=== PATIENT | female | born 2000 | race Caucasian/White ===

== ENCOUNTER 2021-08-09 07:16 | Emergency (ER) | payer OTHER ==
[2021-08-09 08:03] LABS: BASOPHILS # (AUTO) 0.1 10^3/uL (0.0-0.1); BASOPHILS % (AUTO) 0.6 %; EOSINOPHILS # (AUTO) 0.2 10^3/uL (0.0-0.7); EOSINOPHILS % (AUTO) 2.3 %; HCT - HEMATOCRIT 40.1 % (37.0-47.0); HGB - HEMOGLOBIN 14.1 g/dL (12.0-16.0); LYMPHOCYTES # (AUTO) 2.2 10^3/uL (1.5-3.5); LYMPHOCYTES % (AUTO) 26.5 %; MEAN CORPUSCULAR HEMOGLOBIN 31.4 pg (27.0-31.0); MEAN CORPUSCULAR HGB CONC 35.2 g/dL (32.0-36.0); MEAN CORPUSCULAR VOLUME 89.3 fL (81.0-99.0); MEAN PLATELET VOLUME 12.4 fL (7.9-10.8); MONOCYTES # (AUTO) 0.6 10^3/uL (0.0-1.0); MONOCYTES % (AUTO) 6.8 %; NEUTROPHILS # (AUTO) 5.2 10^3/uL (1.5-6.6); NEUTROPHILS % (AUTO) 63.4 %; PLT - PLATELET COUNT 164 10^3/uL (130-450); RED BLOOD COUNT 4.49 10^6/uL (4.20-5.40); RED CELL DISTRIBUTION WIDTH 11.4 % (12.0-15.0); WHITE BLOOD COUNT 8.3 x10^3/uL (4.8-10.8)
--- NOTE | 2021-08-09 08:06 | ED Physician Documentation ---
PD HPI ABD PAIN - Stated complaint Stated Complaint: STOMACH PX - Chief complaint Chief Complaint: Abd Pain - History obtained from History obtained from: Patient - History of Present Illness Timing - onset: Last night (onset during the night of abd cramping pain and repetitive nausea/vomiting. Only 1 loose stool. Prior to that had been having some epigastric pains with eating for about a week, but no vomiting.) Timing - duration: Hours Timing - details: Abrupt onset, Still present Quality: Cramping, Aching, Pain Location: Epigastric, Periumbilical Radiation: No: Chest, Lower back Improved by: No: Vomiting Worsened by: Eating Associated symptoms: Nausea, Vomiting, Diarrhea (single loose stool), Loss of appetite. No: Fever, Constipation, Dysuria, Dizzy, Near syncope / syncope Recently seen: Not recently seen Review of Systems Constitutional: denies: Fever, Chills Nose: denies: Rhinorrhea / runny nose, Congestion Throat: denies: Sore throat Cardiac: denies: Chest pain / pressure Respiratory: denies: Cough GI: reports: Abdominal Pain (epigastric to mid abdomen), Nausea, Vomiting, Diarrhea. denies: Hematemesis, Bloody / black stool : denies: Dysuria, Frequency Skin: denies: Rash Neurologic: denies: Generalized weakness, Near syncope PD PAST MEDICAL HISTORY - Past Medical History Past Medical History: No - Past Surgical History Past Surgical History: No - Present Medications Home Medications: Ambulatory Orders Medication Instructions Recorded Confirmed Famotidine [Pepcid] 20 mg PO DAILY #20 tablet 08/09/21 HYDROcod/ACETAM 5/325 [[place] 5/325] 1 ea PO Q6H PRN #10 tablet 08/09/21 Ondansetron Odt [Zofran] 4 mg TL Q6H PRN #10 tablet 08/09/21 - Allergies Allergies/Adverse Reactions: Allergies Allergy/AdvReac Type Severity Reaction Status Date / Time No Known Drug Allergies Allergy Verified 08/09/21 07:25 - Social History Does the pt smoke?: No Smoking Status: Never smoker PD ED PE NORMAL - Vitals Vital signs reviewed: Yes - General General: Alert and oriented X 3, Well developed/nourished - HEENT HEENT: PERRL, EOMI (nonicteric), Pharynx benign - Neck Neck: Supple, no meningeal sign, No adenopathy - Cardiac Cardiac: RRR, No murmur - Respiratory Respiratory: Clear bilaterally - Abdomen Abdomen: Soft, Non distended, No organomegaly, Other (tender without guarding nor percussion tender in supraumbilical and epigastric area. Some to RUQ. Not tender in lower abd. No percussion nor rebound tenderness. ). No: Normal bowel sounds (decreased) - Female Female : Deferred - Rectal Rectal: Deferred - Back Back: No CVA TTP - Derm Derm: Normal color, Warm and dry - Neuro Neuro: Alert and oriented X 3, No motor deficit, Normal speech Results - Vitals Vitals: Vital Signs - 24 hr 08/09/21 09:06 Heart Rate 49 L Respiratory 16 Rate Blood Pressure 98/57 L O2 Saturation 100 Oxygen O2 Source Room air - Labs Labs: Laboratory Tests 08/09/21 08/09/21 08/09/21 07:40 07:40 07:40 WBC 8.3 RBC 4.49 Hgb 14.1 Hct 40.1 MCV 89.3 MCH 31.4 H MCHC 35.2 RDW 11.4 L Plt Count 164 MPV 12.4 H Neut # (Auto) 5.2 Lymph # (Auto) 2.2 [place] # (Auto) 0.6 Eos # (Auto) 0.2 Baso # (Auto) 0.1 Absolute Nucleated RBC 0.00 Nucleated RBC % 0.0 Sodium 137 Potassium 3.5 Chloride 101 Carbon Dioxide 26 Anion Gap 10.0 BUN 12 Creatinine 0.6 Estimated GFR (MDRD) 126 Glucose 95 Calcium 9.5 Total Bilirubin 1.7 H AST 20 ALT 19 Alkaline Phosphatase 55 Total Protein 7.4 Albumin 4.7 Globulin 2.7 Albumin/Globulin Ratio 1.7 Lipase 31 Serum HCG, Qual NEGATIVE PD MEDICAL DECISION MAKING - ED course Complexity details: reviewed results, re-evaluated patient (improved symptoms with IV fluids and meds. ), considered differential (sounds likely viral GE currently but has had some gastritis type symptoms for week or so. Nonperitoneal abd exam. Labs are okay. I did not feel imaging needed at this time. ), d/w patient Departure - Departure Disposition: 01 Home, Self Care Clinical Impression: Upper abdominal pain Nausea and vomiting Qualifiers: Vomiting type: unspecified Qualified Code(s): R11.2 - Nausea with vomiting, unspecified Condition: Stable Record reviewed to determine appropriate education?: Yes Instructions: ED Abdominal Pain Female Non-Specific Abdominal Pain, ED Nausea Vomiting Follow-Up: LAVON DAVEY MD [Primary Care Provider] - Prescriptions: HYDROcod/ACETAM 5/325 [[place] 5/325] 1 ea PO Q6H PRN #10 tablet PRN Reason: Pain Famotidine [Pepcid] 20 mg PO DAILY #20 tablet Ondansetron Odt [Zofran] 4 mg TL Q6H PRN #10 tablet PRN Reason: Nausea / Vomiting Comments: Your basic blood counts and kidney function/electrolytes and blood sugar are normal. It is unclear whether this is intestinal and stomach irritation such as food related or potentially viral illness ("stomach flu"). There has been a viral gastroenteritis going around recently that lasts for a couple of days. At this point you do not seem to be tender in the areas most concerning such as appendix or gallbladder. I think we can treat it with nausea medicine, bland food and fluids, acid reducing medication and medicine for pain. I would see how you do over the next 1 to 2 days and see if you are resolved at that point. You do have symptoms suggestive of an irritated stomach (gastritis). I would suggest the famotidine acid reducing medicine twice daily for the next 5 days or so and then once daily for couple weeks after that. Add antacids if needed. Add Tylenol if needed for pains. I would avoid ibuprofen or naproxen if your stomach is upset as they can further irritate it. Off work for couple of days. Recheck if not improved in that timeframe and re turn sooner if worsening. I transmitted the prescriptions to [facility] pharmacy in [place]. I am prescribing a short course of narcotic pain medication for you. These are potentially dangerous and addictive medications that should be used carefully. These medications may constipate you. Take an [id number] stool softener such as docusate twice daily with plenty of water while taking these medications. If you go 24 hours without a bowel movement, take [id number] MiraLAX, per package instructions. Do not drink or drive while taking these medications. If you received narcotic or sedating medications while in the emergency department do not drive for 24 hours. Store this medication in a safe, secure place and out of reach of children. It is a violation of federal law to give or sell this medication to another person or to use in a manner other than prescribed. The ED will not refill narcotic prescriptions, including prescriptions lost or stolen. You can dispose of unwanted medications at the [facility]'s office or at several pharmacies such as [facility]. Forms: Activity restrictions Discharge Date/Time: 08/09/21 11:15
[2021-08-09 08:18] LABS: ALBUMIN 4.7 g/dL (3.2-5.5); ALBUMIN/GLOBULIN RATIO 1.7 (1.0-2.2); BILIRUBIN,TOTAL 1.7 mg/dL (0.2-1.0); CALCIUM 9.5 mg/dL (8.5-10.3); CREATININE 0.6 mg/dL (0.4-1.0); POTASSIUM 3.5 mmol/L (3.5-5.0); TOTAL PROTEIN 7.4 g/dL (6.7-8.2)
[2021-08-09] MEDS ORDERED: ONDANSETRON 4 MG/2 ML VIAL IVP STA (08:25)
[2021-08-09] MEDS ORDERED: KETOROLAC 30 MG/ML VIAL IVP STA (08:25)
[2021-08-09] MEDS ORDERED: SODIUM CHLORIDE 0.9% 1,000 ML IV STA (08:25)
[2021-08-09] MEDS ORDERED: FAMOTIDINE 20 MG/2 ML VIAL IVP STA (08:26)
[2021-08-09] MEDS ORDERED: MORPHINE 2 MG/ML CARPUJECT IVP STA (08:26)
[2021-08-09 09:07] VITALS: BP 98/57
[2021-08-09 09:24] LABS: HCG,QUALITATIVE BLOOD NEGATIVE
== END 2021-08-09 11:15 | disposition home or self-care (01) ==
LOC: ED 07:16
DX: R10.13 Epigastric pain (principal); R11.2 Nausea with vomiting, unspecified
CPT/HCPCS: 36415; 80053; 83690; 84703; 85025; 96374; 99284

== ENCOUNTER 2021-08-15 15:50 | Emergency (ER) | payer OTHER ==
--- NOTE | 2021-08-15 16:32 | ED Physician Documentation ---
PD HPI ABD PAIN - Stated complaint Stated Complaint: LEFT SIDE ABD PX - Chief complaint Chief Complaint: Abd Pain - History obtained from History obtained from: Patient - History of Present Illness Timing - onset: How many days ago (7) Timing - duration: Days (7) Timing - details: Abrupt onset (Abrupt onset nausea vomiting and upper abdominal pain a week ago and was seen in the ER the following morning with presumed viral gastroenteritis versus food related. She states the vomiting resolved but has continued with epigastric to left upper quadrant pain worse with eating.), Still present Quality: Cramping, Aching, Pain Location: Epigastric, LUQ Radiation: No: Chest, Lower back, Left flank Improved by: No: Eating Worsened by: Eating Associated symptoms: Nausea, Vomiting (just the first day, not subsequently). No: Fever, Diarrhea Similar symptoms before: Has not had sx before Recently seen: Clinic (seen by PCP today and referred back to ER.), Emergency Dept (6 days ago with the initial N/V) Review of Systems Constitutional: reports: Fatigue. denies: Fever, Chills, Myalgias Nose: denies: Rhinorrhea / runny nose, Congestion Throat: denies: Sore throat Respiratory: denies: Cough GI: reports: Abdominal Pain, Nausea, Constipation (less stool out the past 6 days (she feels related to pain med use this week).). denies: Vomiting, Diarrhea : denies: Dysuria, Hematuria, Discharge Neurologic: reports: Generalized weakness. 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 - Past Surgical History Past Surgical History: No - Present Medications Home Medications: Ambulatory Orders Medication Instructions Recorded Confirmed Famotidine [Pepcid] 20 mg PO DAILY #20 tablet 08/09/21 HYDROcod/ACETAM 5/325 [[place] 5/325] 1 ea PO Q6H PRN #10 tablet 08/09/21 Ondansetron Odt [Zofran] 4 mg TL Q6H PRN #10 tablet 08/09/21 - Allergies Allergies/Adverse Reactions: Allergies Allergy/AdvReac Type Severity Reaction Status Date / Time No Known Drug Allergies Allergy Verified 08/15/21 15:53 - Social History Does the pt smoke?: No Smoking Status: Never smoker PD ED PE NORMAL - Vitals Vital signs reviewed: Yes - General General: Alert and oriented X 3, Well developed/nourished - HEENT HEENT: Pharynx benign - Neck Neck: Supple, no meningeal sign, No adenopathy - Cardiac Cardiac: RRR, No murmur - Respiratory Respiratory: Clear bilaterally - Abdomen Abdomen: Normal bowel sounds, Soft, Non distended, No organomegaly, Other (tend er with local guarding, without percussion nor rebound tenderness) - Back Back: No CVA TTP - Derm Derm: Normal color, Warm and dry - Neuro Neuro: Alert and oriented X 3, No motor deficit, Normal speech Results - Vitals Vitals: Vital Signs - 24 hr 08/15/21 08/15/21 15:53 17:23 Temperature 36.5 C 37.1 C Heart Rate 76 83 Respiratory 16 18 Rate Blood Pressure 127/56 L 128/83 H O2 Saturation 98 100 Oxygen O2 Source Room air - Labs Labs: Laboratory Tests 08/15/21 08/15/21 17:03 17:03 WBC 6.6 RBC 4.45 Hgb 14.0 Hct 40.0 MCV 89.9 MCH 31.5 H MCHC 35.0 RDW 11.6 L Plt Count 181 MPV 12.2 H Neut # (Auto) 4.0 Lymph # (Auto) 1.8 [place] # (Auto) 0.5 Eos # (Auto) 0.2 Baso # (Auto) 0.1 Absolute Nucleated RBC 0.00 Nucleated RBC % 0.0 Sodium 141 Potassium 4.0 Chloride 104 Carbon Dioxide 26 Anion Gap 11.0 BUN 13 Creatinine 0.8 Estimated GFR (MDRD) 91 Glucose 81 Calcium 9.2 Total Bilirubin 1.5 H AST 23 ALT 22 Alkaline Phosphatase 55 Total Protein 7.0 Albumin 4.4 Globulin 2.6 Albumin/Globulin Ratio 1.7 Lipase 31 PD MEDICAL DECISION MAKING - ED course Complexity details: considered differential (Likely persistent gastritis status post gastroenteritis a week ago. She does have tenderness upper abdomen so can repeat labs and get a scan to ensure no other acute process.), d/w patient Departure - Departure Clinical Impression: Upper abdominal pain Gastritis Qualifiers: Gastritis type: unspecified gastritis Chronicity: acute Gastritis bleeding: without bleeding Qualified Code(s): K29.00 - Acute gastritis without bleeding Condition: Stable Record reviewed to determine appropriate education?: Yes
[2021-08-15] MEDS ORDERED: ONDANSETRON 4 MG/2 ML VIAL IVP STA (17:05)
[2021-08-15] MEDS ORDERED: SODIUM CHLORIDE 0.9% 1,000 ML IV STA (17:05)
[2021-08-15] MEDS ORDERED: MAG HYDROX/AL HYDROX/SIMETH 30 ML UDC PO STA (17:06)
[2021-08-15] MEDS ORDERED: FAMOTIDINE 20 MG/2 ML VIAL IVP STA (17:06)
[2021-08-15 17:11] LABS: BASOPHILS # (AUTO) 0.1 10^3/uL (0.0-0.1); BASOPHILS % (AUTO) 0.9 %; EOSINOPHILS # (AUTO) 0.2 10^3/uL (0.0-0.7); LYMPHOCYTES # (AUTO) 1.8 10^3/uL (1.5-3.5); LYMPHOCYTES % (AUTO) 27.5 %; MEAN CORPUSCULAR HEMOGLOBIN 31.5 pg (27.0-31.0); MEAN CORPUSCULAR VOLUME 89.9 fL (81.0-99.0); MEAN PLATELET VOLUME 12.2 fL (7.9-10.8); MONOCYTES # (AUTO) 0.5 10^3/uL (0.0-1.0); MONOCYTES % (AUTO) 8.1 %; NEUTROPHILS % (AUTO) 60.3 %; PLT - PLATELET COUNT 181 10^3/uL (130-450); RED BLOOD COUNT 4.45 10^6/uL (4.20-5.40); RED CELL DISTRIBUTION WIDTH 11.6 % (12.0-15.0); WHITE BLOOD COUNT 6.6 x10^3/uL (4.8-10.8)
[2021-08-15 17:27] LABS: ALBUMIN 4.4 g/dL (3.2-5.5); ALBUMIN/GLOBULIN RATIO 1.7 (1.0-2.2); BILIRUBIN,TOTAL 1.5 mg/dL (0.2-1.0); CALCIUM 9.2 mg/dL (8.5-10.3); CREATININE 0.8 mg/dL (0.4-1.0)
[2021-08-15] MEDS ORDERED: IOVERSOL 320 100 ML VIAL IVP ONE ×2 (18:05→19:05)
--- NOTE | 2021-08-15 18:39 | CT Report ---
PROCEDURE: Abdomen/Pelvis W INDICATIONS: LUQ abd pain x 6 days TECHNIQUE: After the administration of IV contrast, 5 mm thick sections acquired from the diaphragms to the symp hysis. 5 mm thick coronal and sagittal reformats were acquired. For radiation dose reduction, the f ollowing was used: automated exposure control, adjustment of mA and/or kV according to patient size. COMPARISON: None. FINDINGS: Image quality: Excellent. ABDOMEN: Lung bases: Lung bases are clear. Heart size is normal. Solid organs: Liver and spleen are normal in size and enhancement. Gallbladder is within normal lock its Biliary system is non dilated. Pancreas enhances normally. No adrenal nodules. Kidneys demons trate normal size and enhancement, without hydronephrosis. Peritoneum and bowel: Bowel loops demonstrate normal wall thickness and caliber. No free fluid or a ir. Appendix is not definitively identified. No bowel wall thickening or mesenteric fat stranding is seen in right lower quadrant abdomen. Moderate fecal stasis throughout the colon is seen. Nodes and vessels: No retroperitoneal or mesenteric adenopathy by size criteria. Aorta and inferior vena cava are normal in size. Miscellaneous: No ventral hernias. PELVIS: Genitourinary: Bladder wall thickness is normal. Miscellaneous: No inguinal hernias or adenopathy. Intrauterine device is noted within its normal ce ntral endometrial location. No gross abnormality is seen in bilateral adnexa. Bones: No suspicious bony lesions. No vertebral body compression fractures. IMPRESSION: 1. No acute inflammatory process is seen in abdomen or pelvis. No bowel obstruction. No free fluid of free air. No secondary CT signs of acute appendicitis. Mild to moderate constipation. 2. Intrauterine device in situ. Reviewed by: Yobani Leon MD on 08/15/2021 6:38 PM PST Approved by: Yobani Leon MD on 08/15/2021 6:38 PM PST Station ID: [id number]
[2021-08-15] MEDS ORDERED: SUCRALFATE 1 GM/10 ML UDC PO STA (18:52)
--- NOTE | 2021-08-15 18:55 | ED Physician Documentation ---
ED Addendum - Addendum Addendum: 21-year-old female presents to the emergency department with left upper quadrant abdominal pain. This patient was signed out by Dr. Escamilla. She was awaiting CAT scan. CT scan does not show any acute abnormalities. Pain well controlled here. Tolerating p.o. without difficulty. Will treat as gastritis. Patient counseled regarding signs and symptoms for which I believe and urgent re- evaluation would be necessary. Patient with good understanding of and agreement to plan and is comfortable going home at this time This document was made in part using voice recognition software. While efforts are made to proofread this document, sound alike and grammatical errors may occur. Abdomen is soft, nontender nondistended on serial exam. Departure - Departure Disposition: Home, Self Care Clinical Impression: Upper abdominal pain Gastritis Qualifiers: Gastritis type: unspecified gastritis Chronicity: acute Gastritis bleeding: without bleeding Qualified Code(s): K29.00 - Acute gastritis without bleeding Condition: Stable Instructions: ED Gastritis Follow-Up: LAVON DAVEY MD [Primary Care Provider] - Within 1 week Prescriptions: Sucralfate [Carafate] 1 gm PO ACHS #60 tablet Esomeprazole Magnesium [Nexium] 40 mg PO DAILY #30 cap.sr Famotidine [Pepcid] 20 mg PO BID #60 tablet Ondansetron Odt [Zofran] 4 mg TL Q6H PRN #10 tablet PRN Reason: Nausea / Vomiting Comments: Your prescriptions were [facility]. Your laboratory studies do not show any acute abnormalities today. Your CT scan does not show any acute abnormalities either. Please return if you worsen. Follow-up bland diet. Avoid spicy foods, fried foods, caffeine, alcohol.
[2021-08-15] MEDS ORDERED: IOPAMIDOL-300 50 ML VIAL PO ONE (19:06)
[2021-08-15 19:08] VITALS: BP 128/70
== END 2021-08-15 19:08 | disposition home or self-care (01) ==
LOC: ED 15:50
DX: K29.00 Acute gastritis without bleeding (principal)
CPT/HCPCS: 36415; 74177; 80053; 83690; 85025; 96361; 96374; 99284; A9270; Q9967

== ENCOUNTER 2022-07-20 15:45 | Emergency (ER) | payer OTHER ==
[2022-07-20 16:12] LABS: BILIRUBIN,URINE NEGATIVE (NEGATIVE); GLUCOSE, URINE (UA) NEGATIVE (NEGATIVE); KETONES,URINE (UA) NEGATIVE (NEGATIVE); LEUKOCYTE ESTERASE, URINE NEGATIVE (NEGATIVE); NITRITE,URINE NEGATIVE (NEGATIVE); OCCULT BLOOD,URINE NEGATIVE (NEGATIVE); PH,URINE 8.5 PH (5.0-7.5); PROTEIN,URINE 30 mg/dL (NEGATIVE); UROBILINOGEN,URINE 1 (NORMAL) E.U./dL (NORMAL)
[2022-07-20 16:15] LABS: CLARITY,URINE HAZY (CLEAR); HCG UR QUAL NEGATIVE
[2022-07-20 16:17] LABS: BASOPHILS # (AUTO) 0.1 10^3/uL (0.0-0.1); BASOPHILS % (AUTO) 0.7 %; EOSINOPHILS # (AUTO) 0.1 10^3/uL (0.0-0.7); EOSINOPHILS % (AUTO) 1.6 %; HCT - HEMATOCRIT 43.1 % (37.0-47.0); HGB - HEMOGLOBIN 14.4 g/dL (12.0-16.0); LYMPHOCYTES # (AUTO) 1.4 10^3/uL (1.5-3.5); LYMPHOCYTES % (AUTO) 20.7 %; MEAN CORPUSCULAR HEMOGLOBIN 30.7 pg (27.0-31.0); MEAN CORPUSCULAR HGB CONC 33.4 g/dL (32.0-36.0); MEAN CORPUSCULAR VOLUME 91.9 fL (81.0-99.0); MEAN PLATELET VOLUME 11.3 fL (7.9-10.8); MONOCYTES # (AUTO) 0.4 10^3/uL (0.0-1.0); MONOCYTES % (AUTO) 5.5 %; NEUTROPHILS # (AUTO) 4.8 10^3/uL (1.5-6.6); NEUTROPHILS % (AUTO) 71.4 %; PLT - PLATELET COUNT 203 10^3/uL (130-450); RED BLOOD COUNT 4.69 10^6/uL (4.20-5.40); RED CELL DISTRIBUTION WIDTH 11.7 % (12.0-15.0); WHITE BLOOD COUNT 6.8 x10^3/uL (4.8-10.8)
[2022-07-20 16:21] LABS: BACTERIA,URINE Moderate /HPF (None Seen); MUCUS,URINE Moderate Strands; RBC,URINE 0-5 /HPF (0-5); SQUAMOUS EPITHELIAL CELL,UR MOD Squamous (<= Few); WBC,URINE 0-3 /HPF (0-5)
[2022-07-20 16:31] LABS: ALBUMIN 4.4 g/dL (3.2-5.5); ALBUMIN/GLOBULIN RATIO 1.3 (1.0-2.2); BILIRUBIN,TOTAL 1.9 mg/dL (0.2-1.0); CALCIUM 8.9 mg/dL (8.5-10.3); CREATININE 0.8 mg/dL (0.4-1.0); POTASSIUM 3.9 mmol/L (3.5-5.0); TOTAL PROTEIN 7.7 g/dL (6.7-8.2)
[2022-07-20] MEDS ORDERED: PROCHLORPERAZINE 10 MG/2 ML VIAL IM STA (16:46)
[2022-07-20] MEDS ORDERED: CEFPODOXIME PROXETIL 100 MG TABLET PO STA (16:47)
[2022-07-20] MEDS ORDERED: KETOROLAC 30 MG/ML VIAL IM STA (16:47)
--- NOTE | 2022-07-20 16:54 | ED Physician Documentation ---
History of Present Illness - Stated complaint Stated Complaint: FEMALE ,VOMITING,MIGRAINE - Chief complaint Chief Complaint: Abd Pain - Additonal information Additional information: 22-year-old female presents emergency department for evaluation of intermittent dysuria for about 3 months. Some days worse than others. Over the last 24 hours she has had persistent dysuria urgency and frequency. Also began to have a migraine headache with nausea and vomiting this morning. This is typical of her migraines associated with photophobia and light sensitivity. She took Excedrin without relief of symptoms. She states that she was was last sexually active about 6 months ago. Review of Systems Constitutional: reports: Reviewed and negative Cardiac: reports: Reviewed and negative Respiratory: reports: Reviewed and negative GI: reports: Abdominal Pain, Nausea. denies: Vomiting : reports: Dysuria, Frequency, Hesitancy. 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 - Past Surgical History Past Surgical History: No - Present Medications Home Medications: Ambulatory Orders Medication Instructions Recorded Confirmed Famotidine [Pepcid] 20 mg PO DAILY #20 tablet 08/09/21 HYDROcod/ACETAM 5/325 [[place] 5/325] 1 ea PO Q6H PRN #10 tablet 08/09/21 Ondansetron Odt [Zofran] 4 mg TL Q6H PRN #10 tablet 08/09/21 Esomeprazole Magnesium [Nexium] 40 mg PO DAILY #30 cap.sr 08/15/21 Famotidine [Pepcid] 20 mg PO BID #60 tablet 08/15/21 Ondansetron Odt [Zofran] 4 mg TL Q6H PRN #10 tablet 08/15/21 Sucralfate [Carafate] 1 gm PO ACHS #60 tablet 08/15/21 Cefpodoxime Proxetil [Vantin] 100 mg PO Q12H #14 tablet 07/20/22 - Allergies Allergies/Adverse Reactions: Allergies Allergy/AdvReac Type Severity Reaction Status Date / Time No Known Drug Allergies Allergy Verified 07/20/22 15:55 - Social History Does the pt smoke?: No Smoking Status: Never smoker PD ED PE NORMAL - General General: Alert and oriented X 3, No acute distress - HEENT HEENT: PERRL - Neck Neck: Supple, no meningeal sign, No adenopathy - Cardiac Cardiac: RRR, No murmur - Respiratory Respiratory: No respiratory distress, Clear bilaterally - Abdomen Abdomen: Normal bowel sounds, Soft. No: Non tender (Mild suprapubic tenderness. No flank pain no CVA tenderness. No guarding or rebound) - Derm Derm: Normal color, Warm and dry - Extremities Extremities: No deformity Results - Vitals Vitals: Vital Signs - 24 hr 07/20/22 07/20/22 15:50 18:29 Temperature 36.7 C 36.8 C Heart Rate 81 72 Respiratory 18 18 Rate Blood Pressure 141/72 H 124/68 O2 Saturation 100 99 Oxygen O2 Source Room air - Labs Labs: Laboratory Tests 07/20/22 07/20/22 07/20/22 16:08 16:14 16:14 WBC 6.8 RBC 4.69 Hgb 14.4 Hct 43.1 MCV 91.9 MCH 30.7 MCHC 33.4 RDW 11.7 L Plt Count 203 MPV 11.3 H Neut # (Auto) 4.8 Lymph # (Auto) 1.4 L [place] # (Auto) 0.4 Eos # (Auto) 0.1 Baso # (Auto) 0.1 Absolute Nucleated RBC 0.00 Nucleated RBC % 0.0 Sodium 139 Potassium 3.9 Chloride 103 Carbon Dioxide 29 Anion Gap 7.0 BUN 10 Creatinine 0.8 Estimated GFR (MDRD) 90 Glucose 99 Calcium 8.9 Total Bilirubin 1.9 H AST 16 ALT 13 Alkaline Phosphatase 58 Total Protein 7.7 Albumin 4.4 Globulin 3.3 Albumin/Globulin Ratio 1.3 Lipase 28 Urine Color YELLOW Urine Clarity HAZY Urine pH 8.5 H Ur Specific [employer] 1.010 Urine Protein 30 H Urine Glucose (UA) NEGATIVE Urine Ketones NEGATIVE Urine Occult Blood NEGATIVE Urine Nitrite NEGATIVE Urine Bilirubin NEGATIVE Urine Urobilinogen 1 (NORMAL) Ur Leukocyte Esterase NEGATIVE Urine RBC 0-5 Urine WBC 0-3 Ur Squamous Epith Cells MOD Squamous H Urine Bacteria Moderate H Urine Mucus Moderate Strands Ur Microscopic Review INDICATED Urine Culture Comments NOT INDICATED Urine HCG, Qual NEGATIVE C. glabrata (PCR) C. krusei (PCR) Lisa species DNA T. vaginalis (PCR) Bact Vaginosis (PCR) 07/20/22 17:03 WBC RBC Hgb Hct MCV MCH MCHC RDW Plt Count MPV Neut # (Auto) Lymph # (Auto) [place] # (Auto) Eos # (Auto) Baso # (Auto) Absolute Nucleated RBC Nucleated RBC % Sodium Potassium Chloride Carbon Dioxide Anion Gap BUN Creatinine Estimated GFR (MDRD) Glucose Calcium Total Bilirubin AST ALT Alkaline Phosphatase Total Protein Albumin Globulin Albumin/Globulin Ratio Lipase Urine Color Urine Clarity Urine pH Ur Specific [employer] Urine Protein Urine Glucose (UA) Urine Ketones Urine Occult Blood Urine Nitrite Urine Bilirubin Urine Urobilinogen Ur Leukocyte Esterase Urine RBC Urine WBC Ur Squamous Epith Cells Urine Bacteria Urine Mucus Ur Microscopic Review Urine Culture Comments Urine HCG, Qual C. glabrata (PCR) NEGATIVE C. krusei (PCR) NEGATIVE Lisa species DNA NEGATIVE T. vaginalis (PCR) NEGATIVE Bact Vaginosis (PCR) NEGATIVE PD Medical Decision Making - ED course Complexity details: reviewed results, re-evaluated patient, considered differential, d/w patient ED course: 22-year-old female presents emergency department for evaluation of intermittent dysuria for 3 months. Denies any sexual activity for at least 6. She has no fevers flank pain or vomiting. However the dysuria got acutely worse over the last few and she developed her typical migraine today, thus she presents here. On exam she appears remarkably well. Her urinalysis has moderate squames but with the dysuria and symptomatology over the last few months we will start her on Vantin. A BV panel was negative. I also discussed with the patient the indication to test for GC which she has acquiesced to today. We will treat only if positive however. In order to manage the migraine we did give her some Compazine and Zofran which fully resolved the headache. Clinically this is not consistent with a subarachnoid hemorrhage and no advanced imaging is necessary. She has no fevers or meningismus, therefore I doubt an infectious etiology. She is discharged home in stable condition. I am encouraging her to have close follow-up with her primary care provider. At 22 she is now of age where she should receive her first Pap smear. However pelvic exam was deferred today Departure - Departure Disposition: 01 Home, Self Care Clinical Impression: Dysuria Migraine headache Qualifiers: Migraine type: unspecified Status migrainosus presence: without status daniel rainosus Intractability: not intractable Qualified Code(s): G43.909 - Migraine, unspecified, not intractable, without status migrainosus Condition: Stable Record reviewed to determine appropriate education?: Yes Prescriptions: Cefpodoxime Proxetil [Vantin] 100 mg PO Q12H #14 tablet Comments: Marek we will notify you if there is any positive testing on your swabs and STD screening today. Please fill a prescription for the antibiotics and begin taking as directed. With simple urinary tract infections I would expect the antibiotics be making you feel better over the next 48 to 72 hours. Please stay well-hydrated. If you find that your symptoms are worsening, you have any flank pain high fevers or vomiting please return immediately to the ER. I do encourage you to follow close with your primary care doctor. At 22 you should receive your first Pap smear. Your primary care doctor can also talk to you about longer-term management of your migraines. Discharge Date/Time: 07/20/22 18:31
[2022-07-20 19:17] LABS: BACTERIAL VAGINOSIS DNA NEGATIVE (NEGATIVE); CANDIDA GLABRATA DNA NEGATIVE (NEGATIVE); CANDIDA GROUP DNA NEGATIVE (NEGATIVE); CANDIDA KRUSEI DNA NEGATIVE (NEGATIVE); TRICHOMONAS VAGINALIS DNA NEGATIVE (NEGATIVE)
[2022-07-20 22:58] VITALS: BP 124/68
[2022-07-20 23:02] LABS: CHLAMYDIA TRACHOMATIS DNA NEGATIVE (NEGATIVE); NEISSERIA GONORRHOEAE DNA NEGATIVE (NEGATIVE)
== END 2022-07-20 18:31 | disposition home or self-care (01) ==
LOC: ED 15:45
DX: R30.0 Dysuria (principal); G43.909 Migraine, unspecified, not intractable, without status migrainosus
CPT/HCPCS: 36415; 80053; 81001; 81025; 81514; 83690; 85025; 87491; 87591; 96372; 99283; 99284; A9270; 81003; 87086; 87661

== ENCOUNTER 2022-08-27 16:50 | Emergency (ER) | payer OTHER ==
--- NOTE | 2022-08-27 17:17 | ED Physician Documentation ---
PD HPI URI - Stated complaint Stated Complaint: THROAT PX/COUGH/CONGESTION - Chief complaint Chief Complaint: Resp - History obtained from History obtained from: Patient - History of Present Illness Timing - onset: How many weeks ago (2) Timing duration: Weeks (2) Timing details: Gradual onset, Still present (has worsened with nasal drainage/sore throat the past few days. 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 returned 2 weeks ago and started sick a couple days after returning. was improving and now sinus/cough symptoms worse.). No: Unimmunized Similar symptoms before: Has not had sx before Recently seen: Not recently seen Review of Systems Constitutional: reports: Fever, Chills Nose: reports: Congestion, Sinus pressure / pain Throat: reports: Sore throat Cardiac: denies: Chest pain / pressure Respiratory: reports: Cough. 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 - Past Surgical History Past Surgical History: No - Present Medications Home Medications: Ambulatory Orders Medication Instructions Recorded Confirmed Famotidine [Pepcid] 20 mg PO DAILY #20 tablet 08/09/21 HYDROcod/ACETAM 5/325 [[place] 5/325] 1 ea PO Q6H PRN #10 tablet 08/09/21 Ondansetron Odt [Zofran] 4 mg TL Q6H PRN #10 tablet 08/09/21 Esomeprazole Magnesium [Nexium] 40 mg PO DAILY #30 cap.sr 08/15/21 Famotidine [Pepcid] 20 mg PO BID #60 tablet 08/15/21 Ondansetron Odt [Zofran] 4 mg TL Q6H PRN #10 tablet 08/15/21 Sucralfate [Carafate] 1 gm PO ACHS #60 tablet 08/15/21 Cefpodoxime Proxetil [Vantin] 100 mg PO Q12H #14 tablet 07/20/22 Albuterol Sulf [Ventolin Hfa 2 - 3 puffs INH Q4HR PRN #1 each 08/27/22 Inhaler] Amoxicillin 500 mg PO TID #21 cap 08/27/22 Cetirizine [ZyrTEC] 10 mg PO DAILY #15 tablet 08/27/22 - Allergies Allergies/Adverse Reactions: Allergies Allergy/AdvReac Type Severity Reaction Status Date / Time No Known Drug Allergies Allergy Verified 08/27/22 17:03 - Social History Does the pt smoke?: No Smoking Status: Never smoker PD ED PE NORMAL - Vitals Vital signs reviewed: Yes - General General: Alert and oriented X 3, No acute distress, Well developed/nourished - HEENT HEENT: Moist mucous membranes, Pharynx benign, Other (some left maxillary sinus tender to percussion. ) - Neck Neck: Supple, no meningeal sign, No adenopathy - Cardiac Cardiac: RRR, No murmur - Respiratory Respiratory: Clear bilaterally - Derm Derm: Normal color, Warm and dry Results - Vitals Vitals: Oxygen O2 Source Room air - Labs Labs: Microbiology 08/27/22 17:05 Group A Strep Throat Culture - Preliminary Throat CULTURE IN PROGRESS. RESULTS TO FOLLOW. Laboratory Tests 08/27/22 08/27/22 17:05 17:05 Nasal Adenovirus (PCR) NOT DETECTED Nasal B. parapertussis DNA (PCR) NOT DETECTED Nasal Coronavir 229E PCR NOT DETECTED Nasal Coronavir HKU1 PCR NOT DETECTED Nasal Coronavir NL63 PCR NOT DETECTED Nasal Coronavir OC43 PCR NOT DETECTED Nasal Enterovir/Rhinovir PCR NOT DETECTED Nasal Influenza B PCR NOT DETECTED Nasal Influenza A PCR NOT DETECTED Nasal Parainfluen 1 PCR NOT DETECTED Nasal Parainfluen 2 PCR NOT DETECTED Nasal Parainfluen 3 PCR NOT DETECTED Nasal Parainfluen 4 PCR NOT DETECTED Nasal RSV (PCR) NOT DETECTED Nasal B.pertussis DNA PCR NOT DETECTED Nasal C.pneumoniae (PCR) NOT DETECTED Terry Human Metapneumo PCR NOT DETECTED Nasal M.pneumoniae (PCR) NOT DETECTED Nasal SARS-CoV-2 (PCR) NOT DETECTED Group A Strep Rapid Negative PD Medical Decision Making - ED course Complexity details: considered differential (does not appear strepy, and rapid strep test negative. Presume initially viral illness and now sounds likely a secondary sinus infection. ), d/w patient Departure - Departure Disposition: 01 Home, Self Care Clinical Impression: Viral illness Acute sinusitis Qualifiers: Sinusitis location: unspecified location Recurrence: non-recurrent Qualified Code(s): J01.90 - Acute sinusitis, unspecified Condition: Stable Record reviewed to determine appropriate education?: Yes Instructions: ED Sinusitis Abx Tx Follow-Up: LAVON DAVEY MD [Primary Care Provider] - Prescriptions: Albuterol Sulf [Ventolin Hfa Inhaler] 2 - 3 puffs INH Q4HR PRN #1 each PRN Reason: Shortness Of Air/Wheezing Amoxicillin 500 mg PO TID #21 cap Cetirizine [ZyrTEC] 10 mg PO DAILY #15 tablet Comments: Your rapid strep test is negative. The viral respiratory PCR test is still pending. We will call you with positive results or more easily you can look up the results on the patient portal later this evening. Meanwhile we will treat this as a likely bacterial sinus infection secondary on top of the presumed viral illness initially. Amoxicillin 3 times daily for a week. Cetirizine antihistamine twice daily for several days then once daily for another week or 2. You also have a wheezing component on your breathing and you could use an albuterol inhaler 2 to 3 puffs 4 times daily to help with that. I will help breathing and cough. Otherwise stay well-hydrated. Tylenol ibuprofen if needed for pains. [id number] cough medicines are still okay. I sent your prescription to [facility] pharmacy. Discharge Date/Time: 08/27/22 18:14
[2022-08-27 17:25] LABS: RAPID STREP SCREEN Negative (Negative)
[2022-08-27] MEDS ORDERED: AMOXICILLIN 250 MG CAPSULE PO STA (17:37)
[2022-08-27] MEDS ORDERED: CETIRIZINE 10 MG TABLET PO STA (17:37)
[2022-08-27] MEDS ORDERED: DEXAMETHASONE 10 MG/ML VIAL PO STA (17:38)
[2022-08-27] MEDS ORDERED: CHERRY SYRUP 10 ML UDC PO ONE (17:38)
[2022-08-27 18:11] LABS: B. PARAPERTUSSIS- RESP PCR PAN NOT DETECTED; B. PERTUSSIS- RESP PCR PANEL NOT DETECTED; C. PNEUMONIAE- RESP PCR PANEL NOT DETECTED; CORONAVIRUS 229E-RESP PCR NOT DETECTED; CORONAVIRUS HKU1-RESP PCR NOT DETECTED; CORONAVIRUS NL63-RESP PCR NOT DETECTED; CORONAVIRUS OC43-RESP PCR NOT DETECTED; HUMAN METAPNEUMOVIRUS NOT DETECTED; INFLUENZA A- RESP PCR PANEL NOT DETECTED; INFLUENZA B - RESP PCR PANEL NOT DETECTED; M. PNEUMONIAE- RESP PCR PANEL NOT DETECTED; PARAINFLUENZA VIRUS 1 NOT DETECTED; PARAINFLUENZA VIRUS 2 NOT DETECTED; PARAINFLUENZA VIRUS 3 NOT DETECTED; PARAINFLUENZA VIRUS 4 NOT DETECTED; RHINOVIRUS/ENTEROVIRUS NOT DETECTED; RSV- RESP PCR PANEL NOT DETECTED; SARS-CoV-2 -RESP PCR PANEL NOT DETECTED
[2022-08-27 18:14] VITALS: BP 114/65
== END 2022-08-27 18:14 | disposition home or self-care (01) ==
LOC: ED 16:50
DX: B34.9 Viral infection, unspecified (principal); J01.90 Acute sinusitis, unspecified; Z20.822 Contact with and (suspected) exposure to COVID-19; Z79.899 Other long term (current) drug therapy
CPT/HCPCS: 87070; 87430; 87633; 99283; A9270

== ENCOUNTER 2023-04-03 15:30 | Outpatient (CLI) | payer OTHER ==
[2023-04-03 19:37] LABS: BACTERIAL VAGINOSIS DNA POSITIVE (NEGATIVE); CANDIDA GLABRATA DNA NEGATIVE (NEGATIVE); CANDIDA GROUP DNA NEGATIVE (NEGATIVE); CANDIDA KRUSEI DNA NEGATIVE (NEGATIVE); TRICHOMONAS VAGINALIS DNA NEGATIVE (NEGATIVE)
[2023-04-03 20:45] LABS: CHLAMYDIA TRACHOMATIS DNA NEGATIVE (NEGATIVE); NEISSERIA GONORRHOEAE DNA NEGATIVE (NEGATIVE)
[2023-04-04 02:08] LABS: HSV 1 IGG TYPE SPEC <0.91 index (0.00-0.90); HSV 2 IGG TYPE SPEC 5.74 index (0.00-0.90)
[2023-04-04 04:09] LABS: HCV AB Non Reactive (Non Reactive); HIV SCREEN 4TH GENERATION Non Reactive (Non Reactive)
[2023-04-04 07:08] LABS: RPR Non Reactive (Non Reactive)
== END 2023-04-03 15:45 | disposition home or self-care (01) ==
LOC: LAB.N 15:30
PROVIDERS: ATTEND Nurse Practitioner
DX: R30.0 Dysuria (principal); Z11.3 Encounter for screening for infections with a predominantly sexual mode of transmission
CPT/HCPCS: 36415; 81514; 86592; 86695; 86696; 86803; 87077; 87086; 87389; 87491; 87591; 87661

== ENCOUNTER 2023-06-25 17:26 | Outpatient (CLI) | payer OTHER ==
--- NOTE | 2023-06-26 09:24 | MRI Report ---
PROCEDURE: LUMBAR SPINE WO INDICATIONS: DORSALGIA TECHNIQUE: Noncontrast sagittal T1 spin echo and T2 fast echo, sagittal STIR, axial T1 and T2 fast spin echo thr ough the lumbar spine. In cases with scoliosis, additional coronal T2 fast spin echo may be performe d. COMPARISON: CT abdomen and pelvis dated 09/12/2021. FINDINGS: Image quality: Excellent. Alignment and Curvature: There is normal bony alignment. Partial sacralization of L5. Bone Marrow: Marrow is of normal overall signal. No acute vertebral body compression fractures. Spinal Cord: Conus medullaris terminates at the L1 level. Visualized cord demonstrates normal signa l and size. Paraspinous Soft Tissues: No paravertebral masses. T12-L1: Normal in appearance. L1-L2: Normal in appearance. L2-L3: Normal in appearance. L3-L4: Normal in appearance. L4-L5: Normal in appearance. L5-S1: Partial sacralization of L5 with a rudimentary disc and a pseudoarticulation involving the l eft transverse process. No canal stenosis or foraminal stenosis. IMPRESSION: 1. Partial sacralization of L5. 2. Otherwise unremarkable study. No canal stenosis or foraminal stenosis. Reviewed by: Casey Galan MD on 06/26/2023 9:23 AM PST Approved by: Casey Galan MD on 06/26/2023 9:23 AM PST Station ID: [id number]
== END 2023-06-25 17:27 | disposition home or self-care (01) ==
LOC: DI 17:26
PROVIDERS: ATTEND Student in an Organized Health Care Education/Training Program
DX: M54.50 Low back pain, unspecified (principal); Q76.49 Other congenital malformations of spine, not associated with scoliosis

== ENCOUNTER 2023-07-03 07:34 | Emergency (ER) | payer OTHER ==
[2023-07-03 07:56] VITALS: BP 133/79; O2SAT 98
[2023-07-03] MEDS ORDERED: IBUPROFEN 600 MG TABLET PO STA (08:36)
[2023-07-03] MEDS ORDERED: CYCLOBENZAPRINE 10 MG TABLET PO STA (08:36)
--- NOTE | 2023-07-03 08:54 | XRAY Report ---
PROCEDURE: Chest 1V INDICATIONS: L sided pain TECHNIQUE: One view of the chest was acquired. COMPARISON: None. FINDINGS: Surgical changes and devices: None. Lungs and pleura: No pleural effusions or pneumothorax. Lungs are clear. Mediastinum: Mediastinal contours appear normal. Heart size is normal. Bones and chest wall: No suspicious bony lesions. Overlying soft tissues appear unremarkable. IMPRESSION: No acute cardiopulmonary process. Reviewed by: Casey Galan MD on 07/03/2023 8:52 AM [facility] Approved by: Casey Galan MD on 07/03/2023 8:52 AM [facility] Station ID: [id number]
--- NOTE | 2023-07-03 09:02 | ED Physician Documentation ---
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 She states that a month ago she had to push something heavy at work and has been having worsening pain. She did have an MRI on June 26 but is unsure of those results. She also reports having pain in the left lower rib region on her back that is also been ongoing for a significant amount of time. Patient states she did an x-ray done at the [facility] and they told her that she had a rib that was out of place but did not offer any recommendations or treatment for this. She has been undergoing physical therapy for her back pain and states she last had physical therapy about a month ago. She is currently only on meloxicam for her back which she takes once a day. They had her stop taking Aleve. She states that she has been having trouble sleeping for the past few days because of her pain and when she called the clinic today they recommended she come to the emergency department for evaluation as they were not able to accommodate her in the clinic today. No fevers. No recent falls or other injuries. No bowel or bladder incontinence. No saddle anesthesia. No leg weakness. Denies history of IV drug use. 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 - Past Surgical History Past Surgical History: No - Present Medications Home Medications: Ambulatory Orders Medication Instructions Recorded Confirmed Famotidine [Pepcid] 20 mg PO DAILY #20 tablet 08/09/21 HYDROcod/ACETAM 5/325 [[place] 5/325] 1 ea PO Q6H PRN #10 tablet 08/09/21 Ondansetron Odt [Zofran] 4 mg TL Q6H PRN #10 tablet 08/09/21 Esomeprazole Magnesium [Nexium] 40 mg PO DAILY #30 cap.sr 08/15/21 Famotidine [Pepcid] 20 mg PO BID #60 tablet 08/15/21 Ondansetron Odt [Zofran] 4 mg TL Q6H PRN #10 tablet 08/15/21 Sucralfate [Carafate] 1 gm PO ACHS #60 tablet 08/15/21 Cefpodoxime Proxetil [Vantin] 100 mg PO Q12H #14 tablet 07/20/22 Albuterol Sulf [Ventolin Hfa 2 - 3 puffs INH Q4HR PRN #1 each 08/27/22 Inhaler] Amoxicillin 500 mg PO TID #21 cap 08/27/22 Cetirizine [ZyrTEC] 10 mg PO DAILY #15 tablet 08/27/22 Cyclobenzaprine [Flexeril] 10 mg PO TID PRN #20 tablet 07/03/23 Ibuprofen [Motrin] 600 mg PO Q6H PRN #30 tab 07/03/23 Lidocaine Patch 5% [Lidoderm Patch] 1 patch TOP DAILY PRN #10 patch 07/03/23 - Allergies Allergies/Adverse Reactions: Allergies Allergy/AdvReac Type Severity Reaction Status Date / Time No Known Drug Allergies Allergy Verified 08/27/22 17:03 - Social History Does the pt smoke?: No Smoking Status: Never smoker PD ED PE NORMAL - General General: Alert and oriented X 3, No acute distress, Well developed/nourished - HEENT HEENT: Atraumatic, Moist mucous membranes, Pharynx benign - Neck Neck: Supple, no meningeal sign - Cardiac Cardiac: RRR, No murmur - Respiratory Respiratory: No respiratory distress, Clear bilaterally - Abdomen Abdomen: Normal bowel sounds, Soft, Non tender, Non distended - Back Back: No spinal TTP - Derm Derm: Warm and dry - Neuro Neuro: Normal speech PD ED PE EXPANDED - Back Back visual: 1 - tenderness 2 - tenderness Results - Vitals Vitals: Vital Signs - 24 hr 07/03/23 07:44 Temperature 36.7 C Heart Rate 78 Respiratory 15 Rate Blood Pressure 133/79 H O2 Saturation 98 Oxygen O2 Source Room air PD Medical Decision Making - ED course Complexity details: reviewed results, re-evaluated patient, d/w patient ED course: Patient is a 23-year-old female presenting for evaluation of low back pain that has been ongoing for years with recent outpatient MRI. I did review her MRI results and there are no significant findings. This MRI is just from 6 days ago. She has no red flag signs or symptoms in regards to her back pain. She is ambulatory here with a normal neuroexam. Distal pulses are intact. I did order a chest x-ray as she was told that she has a rib out of place and does report having some thoracic pain. There is no midline T-spine tenderness. On review of her chest x-ray I do not see signs of pneumothorax, mass or rib fracture. Discussed options for treatment of her back pain and she is agreeable to trial of lidocaine patches, muscle relaxers and anti-inflammatories. She understands the importance of close follow-up with the [place] [facility]. I did also review her MRI results with her but instructed her that she needs to again see her PCP for further discussion. Patient is ambulatory at discharge and advised on concerning symptoms to return for. Departure - Departure Disposition: 01 Home, Self Care Clinical Impression: Chronic low back pain, Left-sided thoracic back pain Condition: Stable Instructions: ED Neck Back Pain General Follow-Up: [facility] [Provider Group] Prescriptions: Cyclobenzaprine [Flexeril] 10 mg PO TID PRN #20 tablet PRN Reason: Spasms Lidocaine Patch 5% [Lidoderm Patch] 1 patch TOP DAILY PRN #10 patch PRN Reason: pain Ibuprofen [Motrin] 600 mg PO Q6H PRN #30 tab PRN Reason: Pain Comments: I have sent prescriptions to [facility] in [place] to help you manage your low back pain. However you do need close follow-up with [facility]. They should review your MRI results with you and determine the next steps. I did obtain a chest x-ray today and do not see any abnormalities. There is no evidence that there is a rib that is out of place. One of the medications is a muscle relaxer called cyclobenzaprine or Flexeril. This can make you feel drowsy or sleepy so do not take this medication if you are driving or going to work. Return to the emergency department with any new Concerns or worsening symptoms. This is the results from your MRI at the end of May. Please review this with your primary care provider. IMPRESSION: 1. Partial sacralization of L5. 2. Otherwise unremarkable study. No canal stenosis or foraminal stenosis. Discharge Date/Time: 07/03/23 09:18
== END 2023-07-03 09:18 | disposition home or self-care (01) ==
LOC: ED 07:34
DX: G89.29 Other chronic pain (principal); M54.50 Low back pain, unspecified; M54.6 Pain in thoracic spine
CPT/HCPCS: 71045; 99283; 99284; A9270

== ENCOUNTER 2023-09-16 08:00 | Outpatient (CLI) | payer OTHER ==
[2023-09-16 16:08] LABS: BILIRUBIN,URINE NEGATIVE (NEGATIVE); GLUCOSE, URINE (UA) NEGATIVE (NEGATIVE); KETONES,URINE (UA) NEGATIVE (NEGATIVE); LEUKOCYTE ESTERASE, URINE NEGATIVE (NEGATIVE); NITRITE,URINE NEGATIVE (NEGATIVE); OCCULT BLOOD,URINE SMALL (NEGATIVE); PROTEIN,URINE NEGATIVE (NEGATIVE); UROBILINOGEN,URINE 0.2 (NORMAL) E.U./dL (NORMAL)
[2023-09-16 16:13] LABS: CLARITY,URINE CLEAR (CLEAR)
[2023-09-16 16:22] LABS: RBC,URINE 0-5 /HPF (0-5); WBC,URINE 0-3 /HPF (0-5)
[2023-09-16 16:23] LABS: BACTERIA,URINE Few /HPF (None Seen); SQUAMOUS EPITHELIAL CELL,UR RARE Squamous (<= Few)
== END 2023-09-16 23:59 | disposition home or self-care (01) ==
LOC: LAB 08:00
PROVIDERS: ATTEND Urology
DX: N39.0 Urinary tract infection, site not specified (principal)
CPT/HCPCS: 81001; 87086

== ENCOUNTER 2024-02-03 22:18 | Emergency (ER) | payer OTHER ==
--- NOTE | 2024-02-03 22:52 | ED Physician Documentation ---
PD HPI MHE - Stated complaint Stated Complaint: MHE - Chief complaint Chief Complaint: MHE - History obtained from History obtained from: Patient - Additional information Additional information: 23yF previously healthy p/w SI, depressed mood, racing thoughts and insomnia for the past several months, worsening over the past couple days. denies HI/AVH. no active plan to kill self but states she has pervasive thoughts. she has been in counseling in the past through the [facility] but states she did not have a good rapport with her therapist. not currently on any meds. 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 Psych: Panic attacks Other Past Medical History: scoliosis - Past Surgical History Past Surgical History: No - Present Medications Home Medications: Ambulatory Orders Medication Instructions Recorded Confirmed Famotidine [Pepcid] 20 mg PO DAILY #20 tablet 08/09/21 HYDROcod/ACETAM 5/325 [[place] 5/325] 1 ea PO Q6H PRN #10 tablet 08/09/21 Ondansetron Odt [Zofran] 4 mg TL Q6H PRN #10 tablet 08/09/21 Esomeprazole Magnesium [Nexium] 40 mg PO DAILY #30 cap.sr 08/15/21 Famotidine [Pepcid] 20 mg PO BID #60 tablet 08/15/21 Ondansetron Odt [Zofran] 4 mg TL Q6H PRN #10 tablet 08/15/21 Sucralfate [Carafate] 1 gm PO ACHS #60 tablet 08/15/21 Cefpodoxime Proxetil [Vantin] 100 mg PO Q12H #14 tablet 07/20/22 Albuterol Sulf [Ventolin Hfa 2 - 3 puffs INH Q4HR PRN #1 each 08/27/22 Inhaler] Amoxicillin 500 mg PO TID #21 cap 08/27/22 Cetirizine [ZyrTEC] 10 mg PO DAILY #15 tablet 08/27/22 Cyclobenzaprine [Flexeril] 10 mg PO TID PRN #20 tablet 07/03/23 Ibuprofen [Motrin] 600 mg PO Q6H PRN #30 tab 07/03/23 Lidocaine Patch 5% [Lidoderm Patch] 1 patch TOP DAILY PRN #10 patch 07/03/23 hydrOXYzine HCL [Hydroxyzine HCl] 25 mg PO Q6H PRN #20 tablet 02/04/24 - Allergies Allergies/Adverse Reactions: Allergies Allergy/AdvReac Type Severity Reaction Status Date / Time doxycycline Allergy Unknown Verified 02/03/24 22:37 - Social History Does the pt smoke?: No Smoking Status: Never smoker Does the pt drink ETOH?: No Does the pt have substance abuse?: No - Immunizations Immunizations are current?: Yes - POLST Patient has POLST: No PD ED PE NORMAL - Vitals Vital signs reviewed: Yes - General General: Alert and oriented X 3, No acute distress, Well developed/nourished - HEENT HEENT: Atraumatic, PERRL, EOMI - Neck Neck: Supple, no meningeal sign - Cardiac Cardiac: RRR - Respiratory Respiratory: No respiratory distress, Clear bilaterally - Abdomen Abdomen: Non tender, Non distended - Derm Derm: Normal color, Warm and dry - Extremities Extremities: No deformity - Neuro Neuro: Alert and oriented X 3 - Psych Psych: Other (depressed mood) Results - Vitals Vitals: Vital Signs - 24 hr 02/03/24 22:33 Temperature 36.7 C Heart Rate 88 Respiratory 19 Rate Blood Pressure 141/75 H O2 Saturation 99 Oxygen O2 Source Room air - Labs Labs: Laboratory Tests 02/03/24 02/03/24 02/03/24 22:56 22:56 23:00 WBC 8.0 RBC 4.41 Hgb 13.4 Hct 39.3 MCV 89.1 MCH 30.4 MCHC 34.1 RDW 11.9 L Plt Count 194 MPV 11.3 H Neut # (Auto) 4.8 Lymph # (Auto) 2.5 Owen # (Auto) 0.5 Eos # (Auto) 0.1 Baso # (Auto) 0.1 Absolute Nucleated RBC 0.00 Nucleated RBC % 0.0 Sodium Potassium Chloride Carbon Dioxide Anion Gap BUN Creatinine Estimated GFR (MDRD) Glucose Calcium Magnesium Total Bilirubin AST ALT Alkaline Phosphatase Total Creatine Kinase Total Protein Albumin Globulin Albumin/Globulin Ratio Lipase TSH Urine Color YELLOW Urine Clarity CLEAR Urine pH 7.0 Ur Specific [place] 1.020 Urine Protein NEGATIVE Urine Glucose (UA) NEGATIVE Urine Ketones NEGATIVE Urine Occult Blood NEGATIVE Urine Nitrite NEGATIVE Urine Bilirubin NEGATIVE Urine Urobilinogen 0.2 (NORMAL) Ur Leukocyte Esterase NEGATIVE Ur Microscopic Review NOT INDICATED Urine Culture Comments NOT INDICATED Urine HCG, Qual NEGATIVE Salicylates Urine Opiates Screen NEGATIVE Ur Buprenorphine Scrn NEGATIVE Ur Oxycodone Screen NEGATIVE Urine Methadone Screen NEGATIVE Acetaminophen Ur Barbiturates Screen NEGATIVE Ur Tricyclics Screen NEGATIVE Ur Phencyclidine Scrn NEGATIVE Ur Amphetamine Screen NEGATIVE U Methamphetamines Scrn NEGATIVE U Benzodiazepines Scrn NEGATIVE Urine Cocaine Screen NEGATIVE U Cannabinoids Screen NEGATIVE Ur Drug Screen Comment CUTOFF CONC BELOW: Ethyl Alcohol 02/03/24 23:00 WBC RBC Hgb Hct MCV MCH MCHC RDW Plt Count MPV Neut # (Auto) Lymph # (Auto) Owen # (Auto) Eos # (Auto) Baso # (Auto) Absolute Nucleated RBC Nucleated RBC % Sodium 137 Potassium 3.4 L Chloride 105 Carbon Dioxide 27 Anion Gap 5.0 L BUN 10 Creatinine 0.8 Estimated GFR (MDRD) 89 Glucose 89 Calcium 8.9 Magnesium 1.7 Total Bilirubin 1.0 AST 14 ALT 10 Alkaline Phosphatase 61 Total Creatine Kinase 35 Total Protein 6.7 Albumin 4.5 Globulin 2.2 Albumin/Globulin Ratio 2.0 Lipase 17 TSH 1.87 Urine Color Urine Clarity Urine pH Ur Specific [place] Urine Protein Urine Glucose (UA) Urine Ketones Urine Occult Blood Urine Nitrite Urine Bilirubin Urine Urobilinogen Ur Leukocyte Esterase Ur Microscopic Review Urine Culture Comments Urine HCG, Qual Salicylates < 1.5 Urine Opiates Screen Ur Buprenorphine Scrn Ur Oxycodone Screen Urine Methadone Screen Acetaminophen 0.3 Ur Barbiturates Screen Ur Tricyclics Screen Ur Phencyclidine Scrn Ur Amphetamine Screen U Methamphetamines Scrn U Benzodiazepines Scrn Urine Cocaine Screen U Cannabinoids Screen Ur Drug Screen Comment Ethyl Alcohol < 10.0 PD Medical Decision Making - ED course ED course: 23yF p/w passive SI, depression, anxiety and insomnia X several months, acutely worsening. Plan to obtain labwork, medically clear and then have [facility] evaluate her for next steps. d/w [facility] psychiatrist Dr. Murillo who recommends patient follow up with [facility] outpatient for referral for IOP. Patient is agreeable to this and requests to go home. I offered to contact her Commanding officer to coordinate follow up and she declined, stating she has a new commanding officer and does not have the new contact information available. she denies active plans for self harm. contracted for safety. Plan to f/u with [facility] outpatient mental health. Prescription for antianxiety medication sent to pharmacy. return precautions given. Departure - Departure Disposition: 01 Home, Self Care Clinical Impression: Anxiety, Depression, Insomnia Condition: Stable Instructions: Insomnia, ED Depression Prescriptions: hydrOXYzine HCL [Hydroxyzine HCl] 25 mg PO Q6H PRN #20 tablet PRN Reason: Anxiety Comments: You were seen in the emergency department for mental health evaluation. A prescription for atarax, an anti-anxiety medicine you can take as needed, was sent to [facility] in [place]. I discussed your care with Dr. Murillo, from [facility] department of psychiatry, who recommends evaluation for consideration of an IOP program -intensive outpatient program (therapy 3h a day, 3 days a week). Please follow up with [facility] for referral to this program. Please return to the emergency department immediately if you have any new or worsening symptoms or other concerns. Forms: PCP List
[2024-02-03 22:58] LABS: BILIRUBIN,URINE NEGATIVE (NEGATIVE); GLUCOSE, URINE (UA) NEGATIVE (NEGATIVE); KETONES,URINE (UA) NEGATIVE (NEGATIVE); LEUKOCYTE ESTERASE, URINE NEGATIVE (NEGATIVE); NITRITE,URINE NEGATIVE (NEGATIVE); OCCULT BLOOD,URINE NEGATIVE (NEGATIVE); PROTEIN,URINE NEGATIVE (NEGATIVE); UROBILINOGEN,URINE 0.2 (NORMAL) E.U./dL (NORMAL)
[2024-02-03 22:59] LABS: CLARITY,URINE CLEAR (CLEAR)
[2024-02-03] MEDS: LORazepam 0.5 MG TABLET PO STA (23:00)
[2024-02-03 23:03] LABS: BASOPHILS # (AUTO) 0.1 10^3/uL (0.0-0.1); BASOPHILS % (AUTO) 0.9 %; EOSINOPHILS # (AUTO) 0.1 10^3/uL (0.0-0.7); EOSINOPHILS % (AUTO) 1.4 %; HCT - HEMATOCRIT 39.3 % (37.0-47.0); HGB - HEMOGLOBIN 13.4 g/dL (12.0-16.0); LYMPHOCYTES # (AUTO) 2.5 10^3/uL (1.5-3.5); MEAN CORPUSCULAR HEMOGLOBIN 30.4 pg (27.0-31.0); MEAN CORPUSCULAR HGB CONC 34.1 g/dL (32.0-36.0); MEAN CORPUSCULAR VOLUME 89.1 fL (81.0-99.0); MEAN PLATELET VOLUME 11.3 fL (7.9-10.8); MONOCYTES # (AUTO) 0.5 10^3/uL (0.0-1.0); MONOCYTES % (AUTO) 6.2 %; NEUTROPHILS # (AUTO) 4.8 10^3/uL (1.5-6.6); NEUTROPHILS % (AUTO) 60.3 %; PLT - PLATELET COUNT 194 10^3/uL (130-450); RED BLOOD COUNT 4.41 10^6/uL (4.20-5.40); RED CELL DISTRIBUTION WIDTH 11.9 % (12.0-15.0)
[2024-02-03 23:09] LABS: AMPHETAMINE SCREEN,URINE NEGATIVE (NEGATIVE); BARBITURATE SCREEN,UR NEGATIVE (NEGATIVE); BENZODIAZEPINES SCREEN, URINE NEGATIVE (NEGATIVE); BUPRENORPHINE SCREEN, URINE NEGATIVE (NEGATIVE); COCAINE SCREEN URINE NEGATIVE (NEGATIVE); METHADONE SCREEN, URINE NEGATIVE (NEGATIVE); METHAMPHETAMINES SCREEN, URINE NEGATIVE (NEGATIVE); OPIATE SCREEN, URINE NEGATIVE (NEGATIVE); OXYCODONE SCREEN, URINE NEGATIVE (NEGATIVE); THC CANNABINOID SCREEN, URINE NEGATIVE (NEGATIVE); TRICYCLIC ANTIDEPRESSANT,URINE NEGATIVE (NEGATIVE)
[2024-02-03 23:18] LABS: ACETAMINOPHEN 0.3 ug/mL; ALBUMIN 4.5 g/dL (3.2-5.5); ALKALINE PHOSPHATASE 61 IU/L (42-121); ALT ALANINE AMINOTRANSFERASE 10 IU/L (10-60); AST ASPARTATE AMINOTRANSFERASE 14 IU/L (10-42); BUN - BLOOD UREA NITROGEN 10 mg/dL (6-20); CALCIUM 8.9 mg/dL (8.5-10.3); CARBON DIOXIDE - CO2 27 mmol/L (21-32); CHLORIDE 105 mmol/L (101-111); CK- CREATINE KINASE 35 IU/L (30-223); CREATININE 0.8 mg/dL (0.6-1.3); ETOH - ETHANOL < 10.0 mg/dL; GFR - MDRD 89 (>89); GLUCOSE 89 mg/dL (74-104); LIPASE 17 U/L (11-82); MAGNESIUM 1.7 mg/dL (1.7-2.3); POTASSIUM 3.4 mmol/L (3.5-4.5); SODIUM 137 mmol/L (135-145); TOTAL PROTEIN 6.7 g/dL (6.4-8.9)
[2024-02-03 23:19] LABS: SALICYLATE < 1.5 mg/dL
[2024-02-03 23:38] LABS: HCG UR QUAL NEGATIVE
[2024-02-03 23:38] LABS: THYROID STIMULATING HORMONE 1.87 uIU/mL (0.34-5.60)
[2024-02-04] MEDS: hydrOXYzine PAMOATE 25 MG CAPSULE PO STA (00:48)
[2024-02-04 01:02] VITALS: BP 135/87; O2SAT 95
== END 2024-02-04 00:49 | disposition home or self-care (01) ==
LOC: ED 22:18
DX: F41.9 Anxiety disorder, unspecified (principal); F32.A Depression, unspecified; G47.00 Insomnia, unspecified; Z79.899 Other long term (current) drug therapy
CPT/HCPCS: 36415; 80053; 80143; 80179; 80306; 81003; 81025; 82077; 82550; 83690; 83735; 84443; 85025; 99283; 99284; A9270; 81001; 87086